=== PATIENT | female | born 1980 | race Two or more races ===

== ENCOUNTER → 2022-12-14 09:26 | Outpatient (BNVA) | payer OTHER, SELFPAY | PROVIDERS: Visit Provider Student in an Organized Health Care Education/Training Program | DX: M06.9 Rheumatoid arthritis, unspecified (principal); M79.7 Fibromyalgia; F17.210 Nicotine dependence, cigarettes, uncomplicated | CPT/HCPCS: 99202 ==

== ENCOUNTER 2022-12-21 14:00 | Outpatient (REF) | payer OTHER, SELFPAY ==
--- NOTE | ~2022-12-21 | XR_ITS ---
EXAMINATION: XR ANKLE, RIGHT XR ANKLE, LEFT XR FOOT, RIGHT XR FOOT, LEFT CLINICAL INFORMATION: Rheumatoid arthritis. COMPARISON: None. TECHNIQUE: AP, oblique, and lateral views of the right and left ankle and foot. FINDINGS: Right Ankle: No acute fracture or dislocation. No joint space narrowing or marginal osteophytes. The ankle mortise is maintained. No concerning lytic or blastic osseous lesion. No abnormal soft tissue calcification. No significant joint effusion. Left Ankle: No acute fracture or dislocation. No joint space narrowing or marginal osteophytes. The ankle mortise is maintained. No concerning lytic or blastic osseous lesion. No abnormal soft tissue calcification. No significant joint effusion. Right Foot: No acute fracture or dislocation. No joint space narrowing or marginal osteophytes. No concerning lytic or blastic osseous lesion. Tiny dorsal calcaneal spur. Left Foot: No acute fracture or dislocation. No joint space narrowing or marginal osteophytes. No concerning lytic or blastic osseous lesion. No abnormal soft tissue calcification. XR/XR ankle LT min 3V IMPRESSION: RIGHT ANKLE: Unremarkable examination. LEFT ANKLE: Unremarkable examination. RIGHT FOOT: Unremarkable examination. LEFT FOOT: Unremarkable examination.
--- NOTE | ~2022-12-21 | XR_ITS ---
EXAMINATION: XR ANKLE, RIGHT XR ANKLE, LEFT XR FOOT, RIGHT XR FOOT, LEFT CLINICAL INFORMATION: Rheumatoid arthritis. COMPARISON: None. TECHNIQUE: AP, oblique, and lateral views of the right and left ankle and foot. FINDINGS: Right Ankle: No acute fracture or dislocation. No joint space narrowing or marginal osteophytes. The ankle mortise is maintained. No concerning lytic or blastic osseous lesion. No abnormal soft tissue calcification. No significant joint effusion. Left Ankle: No acute fracture or dislocation. No joint space narrowing or marginal osteophytes. The ankle mortise is maintained. No concerning lytic or blastic osseous lesion. No abnormal soft tissue calcification. No significant joint effusion. Right Foot: No acute fracture or dislocation. No joint space narrowing or marginal osteophytes. No concerning lytic or blastic osseous lesion. Tiny dorsal calcaneal spur. Left Foot: No acute fracture or dislocation. No joint space narrowing or marginal osteophytes. No concerning lytic or blastic osseous lesion. No abnormal soft tissue calcification. XR/XR ankle RT min 3V IMPRESSION: RIGHT ANKLE: Unremarkable examination. LEFT ANKLE: Unremarkable examination. RIGHT FOOT: Unremarkable examination. LEFT FOOT: Unremarkable examination.
--- NOTE | ~2022-12-21 | XR_ITS ---
EXAMINATION: XR BOTH KNEES AP STANDING XR RIGHT KNEE, 3 VIEWS XR LEFT KNEE, 3 VIEWS CLINICAL INFORMATION: Rheumatoid arthritis. COMPARISON: None. TECHNIQUE: Standing AP view of both knees as well as tunnel, lateral, and sunrise views of the right and left knee. FINDINGS: Right Knee: No acute fracture or dislocation. No joint space narrowing or marginal osteophytes. No osseous erosion. No joint effusion. No abnormal soft tissue calcification. Left Knee: No acute fracture or dislocation. No joint space narrowing or marginal osteophytes. No osseous erosion. No joint effusion. No abnormal soft tissue calcification. XR/XR knee LT 3V IMPRESSION: RIGHT KNEE: Unremarkable examination. LEFT KNEE: Unremarkable examination.
--- NOTE | ~2022-12-21 | XR_ITS ---
EXAMINATION: XR ANKLE, RIGHT XR ANKLE, LEFT XR FOOT, RIGHT XR FOOT, LEFT CLINICAL INFORMATION: Rheumatoid arthritis. COMPARISON: None. TECHNIQUE: AP, oblique, and lateral views of the right and left ankle and foot. FINDINGS: Right Ankle: No acute fracture or dislocation. No joint space narrowing or marginal osteophytes. The ankle mortise is maintained. No concerning lytic or blastic osseous lesion. No abnormal soft tissue calcification. No significant joint effusion. Left Ankle: No acute fracture or dislocation. No joint space narrowing or marginal osteophytes. The ankle mortise is maintained. No concerning lytic or blastic osseous lesion. No abnormal soft tissue calcification. No significant joint effusion. Right Foot: No acute fracture or dislocation. No joint space narrowing or marginal osteophytes. No concerning lytic or blastic osseous lesion. Tiny dorsal calcaneal spur. Left Foot: No acute fracture or dislocation. No joint space narrowing or marginal osteophytes. No concerning lytic or blastic osseous lesion. No abnormal soft tissue calcification. XR/XR foot LT min 3V IMPRESSION: RIGHT ANKLE: Unremarkable examination. LEFT ANKLE: Unremarkable examination. RIGHT FOOT: Unremarkable examination. LEFT FOOT: Unremarkable examination.
--- NOTE | ~2022-12-21 | XR_ITS ---
EXAMINATION: XR BOTH KNEES AP STANDING XR RIGHT KNEE, 3 VIEWS XR LEFT KNEE, 3 VIEWS CLINICAL INFORMATION: Rheumatoid arthritis. COMPARISON: None. TECHNIQUE: Standing AP view of both knees as well as tunnel, lateral, and sunrise views of the right and left knee. FINDINGS: Right Knee: No acute fracture or dislocation. No joint space narrowing or marginal osteophytes. No osseous erosion. No joint effusion. No abnormal soft tissue calcification. Left Knee: No acute fracture or dislocation. No joint space narrowing or marginal osteophytes. No osseous erosion. No joint effusion. No abnormal soft tissue calcification. XR/XR knee standing BI IMPRESSION: RIGHT KNEE: Unremarkable examination. LEFT KNEE: Unremarkable examination.
--- NOTE | ~2022-12-21 | XR_ITS ---
EXAMINATION: XR ANKLE, RIGHT XR ANKLE, LEFT XR FOOT, RIGHT XR FOOT, LEFT CLINICAL INFORMATION: Rheumatoid arthritis. COMPARISON: None. TECHNIQUE: AP, oblique, and lateral views of the right and left ankle and foot. FINDINGS: Right Ankle: No acute fracture or dislocation. No joint space narrowing or marginal osteophytes. The ankle mortise is maintained. No concerning lytic or blastic osseous lesion. No abnormal soft tissue calcification. No significant joint effusion. Left Ankle: No acute fracture or dislocation. No joint space narrowing or marginal osteophytes. The ankle mortise is maintained. No concerning lytic or blastic osseous lesion. No abnormal soft tissue calcification. No significant joint effusion. Right Foot: No acute fracture or dislocation. No joint space narrowing or marginal osteophytes. No concerning lytic or blastic osseous lesion. Tiny dorsal calcaneal spur. Left Foot: No acute fracture or dislocation. No joint space narrowing or marginal osteophytes. No concerning lytic or blastic osseous lesion. No abnormal soft tissue calcification. XR/XR foot RT min 3V IMPRESSION: RIGHT ANKLE: Unremarkable examination. LEFT ANKLE: Unremarkable examination. RIGHT FOOT: Unremarkable examination. LEFT FOOT: Unremarkable examination.
--- NOTE | ~2022-12-21 | XR_ITS ---
EXAMINATION: XR WRIST, RIGHT XR WRIST, LEFT XR HAND, RIGHT XR HAND, LEFT CLINICAL INFORMATION: Rheumatoid arthritis. COMPARISON: None. TECHNIQUE: PA, lateral, oblique, and scaphoid views of the right and left hand and wrist. FINDINGS: Right Wrist: No fracture or dislocation. No joint space narrowing or marginal osteophytes. No osseous erosion. No abnormal soft tissue calcification. Left Wrist: No fracture or dislocation. No joint space narrowing or marginal osteophytes. No osseous erosion. No abnormal soft tissue calcification. Right Hand: No fracture or dislocation. Normal carpal alignment. No significant joint space narrowing or marginal osteophytes. No osseous erosion. No periarticular osteopenia. No abnormal soft tissue calcification. Left Hand: No fracture or dislocation. Normal carpal alignment. No significant joint space narrowing or marginal osteophytes. No osseous erosion. No periarticular osteopenia. No abnormal soft tissue calcification. XR/XR hand wrist RT IMPRESSION: RIGHT WRIST: Unremarkable examination. LEFT WRIST: Unremarkable examination. RIGHT HAND: Unremarkable examination. LEFT HAND: Unremarkable examination.
--- NOTE | ~2022-12-21 | XR_ITS ---
EXAMINATION: XR BOTH KNEES AP STANDING XR RIGHT KNEE, 3 VIEWS XR LEFT KNEE, 3 VIEWS CLINICAL INFORMATION: Rheumatoid arthritis. COMPARISON: None. TECHNIQUE: Standing AP view of both knees as well as tunnel, lateral, and sunrise views of the right and left knee. FINDINGS: Right Knee: No acute fracture or dislocation. No joint space narrowing or marginal osteophytes. No osseous erosion. No joint effusion. No abnormal soft tissue calcification. Left Knee: No acute fracture or dislocation. No joint space narrowing or marginal osteophytes. No osseous erosion. No joint effusion. No abnormal soft tissue calcification. XR/XR knee RT 3V IMPRESSION: RIGHT KNEE: Unremarkable examination. LEFT KNEE: Unremarkable examination.
--- NOTE | ~2022-12-21 | XR_ITS ---
EXAMINATION: XR WRIST, RIGHT XR WRIST, LEFT XR HAND, RIGHT XR HAND, LEFT CLINICAL INFORMATION: Rheumatoid arthritis. COMPARISON: None. TECHNIQUE: PA, lateral, oblique, and scaphoid views of the right and left hand and wrist. FINDINGS: Right Wrist: No fracture or dislocation. No joint space narrowing or marginal osteophytes. No osseous erosion. No abnormal soft tissue calcification. Left Wrist: No fracture or dislocation. No joint space narrowing or marginal osteophytes. No osseous erosion. No abnormal soft tissue calcification. Right Hand: No fracture or dislocation. Normal carpal alignment. No significant joint space narrowing or marginal osteophytes. No osseous erosion. No periarticular osteopenia. No abnormal soft tissue calcification. Left Hand: No fracture or dislocation. Normal carpal alignment. No significant joint space narrowing or marginal osteophytes. No osseous erosion. No periarticular osteopenia. No abnormal soft tissue calcification. XR/XR hand wrist LT IMPRESSION: RIGHT WRIST: Unremarkable examination. LEFT WRIST: Unremarkable examination. RIGHT HAND: Unremarkable examination. LEFT HAND: Unremarkable examination.
[2022-12-21 14:33] LABS: Basophils Absolute Auto 0.1 X10*3/uL (0.0-0.2); Basophils Percent Auto 0.3 % (0-2); Eosinophils Percent Auto 0.2 % (0-4); Hematocrit 42.2 % (37.0-47.0); Hemoglobin 14.3 g/dl (12.0-16.0); Imm Gran Abs Auto 0.13 X10*3/uL (0.00-0.03); Imm Gran Pct Auto 0.6 % (0.0-0.4); Lymphocytes Absolute Auto 5.9 X10*3/uL (1.2-4.9); Lymphocytes Percent Auto 26.6 % (20-40); MANUAL DIFF FLAG SCAN; Mean Corpuscular HGB Conc 33.9 g/dl (31.0-35.0); Mean Corpuscular Volume 91.5 fL (80.0-98.0); Mean Platelet Volume 10.1 fL (9.4-12.3); Monocytes Absolute Auto 0.8 X10*3/uL (0.1-1.2); Monocytes Percent Auto 3.7 % (2-11); Neutrophils Absolute Auto 15.2 x10*3/uL (2.0-8.3); Neutrophils Percent Auto 68.6 % (45-73); Platelet Count 409 X10*3/uL (160-400); Red Blood Count 4.61 X10*6/uL (4.20-5.50); Red Cell Distribution Width 13.2 % (11.0-16.0); SCAN SMEAR FLAG 1; White Blood Count 22.2 X10*3/uL (4.8-10.8)
[2022-12-21 15:04] LABS: SLIDE REVIEW VERIFIED
[2022-12-21 15:23] LABS: Alanine Aminotransferase 20 U/L (0-31); Albumin Level 4.3 g/dL (3.5-5.0); Alkaline Phosphatase 97 U/L (39-117); Aspartate Amino Transferase 11 U/L (5-31); Bilirubin Total 0.4 mg/dL (0.0-1.0); Blood Urea Nitrogen 12 mg/dL (9-16); C Reactive Protein 0.86 mg/dL (< or = 0.50); Calcium 9.3 mg/dL (8.4-10.2); Estimated Glomerular Filt Rate > 60; Glucose Random 120 mg/dL (60-115); Rheumatoid Factor 41.2 IU/mL (<15.0); Total Protein 7.3 g/dL (6.5-8.0); Uric Acid 5.7 mg/dL (2.4-5.7)
[2022-12-21 15:24] LABS: Appearance Urine Clear; Color Urine Yellow; Glucose Urine UA Negative (Negative); Leukocyte Esterase Urine Trace (Negative); Nitrite Urine Negative (Negative); PH 6.5 (5.0-9.0); Specific Gravity - Urine 1.015 (1.005-1.025); UMIC TRIGGER UA YES; Urine Blood Negative (Negative); Urine Ketones Negative (Negative); Urine Protein Negative (Neg-Trace)
[2022-12-21 15:26] LABS: Erythrocyte Sedimentation Rate 27 MM/HR (0-20)
[2022-12-21 15:31] LABS: Bacteria Urine None Seen (None Seen); Hyaline Casts Urine 0-2 /LPF (0-2); WBC Urine 0-5 /HPF (0-5)
[2022-12-21 15:41] LABS: Creatinine Urine 79.11 mg/dL; Total Protein Urine Random < 7 mg/dL (<12)
[2022-12-21 15:47] LABS: Anion Gap 15 (12-20); Carbon Dioxide 23 mmol/L (22-29); Chloride 104 mmol/L (96-108); Potassium 3.7 mmol/L (3.3-5.1); Sodium 138 mmol/L (135-145)
[2022-12-22 05:09] LABS: Estimated Average Glucose 108 mg/dL; Hemoglobin A1c % 5.4 %
[2022-12-22 20:54] LABS: Complement C3 169 mg/dL (83-193)
[2022-12-23 13:43] LABS: Anti-Centromere B Antibodies <1.0 NEG AI (<1.0 NEG)
[2022-12-23 13:48] LABS: Anti Nuclear Antibody Screen NEGATIVE (NEGATIVE)
[2022-12-23 13:59] LABS: Anti DNA DS Antibody <1 IU/mL; Antibody to SS-A Antigen <1.0 NEG AI (<1.0 NEG); Antibody to SS-B Antigen <1.0 NEG AI (<1.0 NEG); SM/Ribonucleoprotein Ab <1.0 NEG AI (<1.0 NEG); Scleroderma 70 Antibody <1.0 NEG AI (<1.0 NEG); Smith Protein <1.0 NEG AI (<1.0 NEG)
[2022-12-23 18:18] LABS: IgA 301 mg/dL (47-310); IgG 1167 mg/dL (600-1640); IgM 161 mg/dL (50-300)
[2022-12-23 21:38] LABS: TS Negative Control Passed; TS Panel A 0; TS Panel B 2; TS Positive Control Passed; TSpotTB Negative (Negative)
[2022-12-23 21:48] LABS: Prot Elec - Albumin 3.8 g/dL (3.8-4.8); Prot Elec - Alpha1 0.3 g/dL (0.2-0.3); Prot Elec - Beta 1 0.5 g/dL (0.4-0.6); Prot Elec - Beta 2 0.4 g/dL (0.2-0.5)
[2022-12-26 05:59] LABS: Beta-2 Glycoprotein IgA 2.3 U/mL (<20.0); Beta-2 Glycoprotein IgG <2.0 U/mL (<20.0); Beta-2 Glycoprotein IgM 4.8 U/mL (<20.0)
[2022-12-26 06:58] LABS: PTT (LAC) Screen 30 sec (<=40)
[2022-12-27 08:04] LABS: Cardiolipin IgG Ab <2.0 GPL-U/mL; Cardiolipin IgM Ab 4.7 MPL-U/mL
[2022-12-28 15:39] LABS: DNAds, Crithidia Antibody Negative (Negative)
== END 2022-12-21 14:01 | disposition home or self-care (01) ==
LOC: HO.LAB 14:00
PROVIDERS: Visit Provider Student in an Organized Health Care Education/Training Program
DX: Z13.1 Encounter for screening for diabetes mellitus (principal); Z11.7 Encounter for testing for latent tuberculosis infection; D68.61 Antiphospholipid syndrome; M25.542 Pain in joints of left hand; M32.9 Systemic lupus erythematosus, unspecified; M06.9 Rheumatoid arthritis, unspecified; M34.9 Systemic sclerosis, unspecified
CPT/HCPCS: 36415; 73110; 73130; 73562; 73564; 73565; 73610; 73630; 80053; 81001; 82784; 83036; 84156; 84165; 84550; 85025; 85597; 85613; 85652; 85730; 86038; 86039; 86140; 86146; 86147; 86160; 86225; 86235; 86255; 86334; 86431; 86481

== ENCOUNTER → 2023-03-31 07:54 | Outpatient (BNVA) | payer MEDICAID, SELFPAY | PROVIDERS: PCP Nurse Practitioner; Visit Provider Student in an Organized Health Care Education/Training Program | DX: M06.9 Rheumatoid arthritis, unspecified (principal); M79.7 Fibromyalgia; F17.210 Nicotine dependence, cigarettes, uncomplicated | CPT/HCPCS: 99212 ==

== ENCOUNTER 2023-06-21 13:02 | Outpatient (REF) | payer MEDICAID, SELFPAY ==
[2023-06-21 13:21] LABS: MANUAL DIFF FLAG NO
[2023-06-21 13:50] LABS: Basophils Absolute Auto 0.1 X10*3/uL (0.0-0.2); Basophils Percent Auto 0.4 % (0-2); Eosinophils Absolute Auto 0.2 X10*3/uL (0.0-0.4); Eosinophils Percent Auto 1.7 % (0-4); Hematocrit 40.5 % (37.0-47.0); Hemoglobin 13.5 g/dl (12.0-16.0); Imm Gran Abs Auto 0.06 X10*3/uL (0.00-0.03); Imm Gran Pct Auto 0.4 % (0.0-0.4); Lymphocytes Absolute Auto 3.8 X10*3/uL (1.2-4.9); Lymphocytes Percent Auto 26.6 % (20-40); Mean Corpuscular HGB Conc 33.3 g/dl (31.0-35.0); Mean Corpuscular Hemoglobin 32.2 pg (27.0-33.0); Mean Corpuscular Volume 96.7 fL (80.0-98.0); Mean Platelet Volume 10.2 fL (9.4-12.3); Monocytes Absolute Auto 0.5 X10*3/uL (0.1-1.2); Monocytes Percent Auto 3.3 % (2-11); Neutrophils Absolute Auto 9.6 x10*3/uL (2.0-8.3); Neutrophils Percent Auto 67.6 % (45-73); Platelet Count 354 X10*3/uL (160-400); Red Blood Count 4.19 X10*6/uL (4.20-5.50); Red Cell Distribution Width 14.3 % (11.0-16.0); White Blood Count 14.1 X10*3/uL (4.8-10.8)
[2023-06-21 14:37] LABS: Alanine Aminotransferase 20 U/L (0-31); Albumin Level 3.9 g/dL (3.5-5.0); Alkaline Phosphatase 82 U/L (39-117); Anion Gap 18 (12-20); Aspartate Amino Transferase 13 U/L (5-31); Bilirubin Total 0.5 mg/dL (0.0-1.0); Blood Urea Nitrogen 12 mg/dL (9-16); C Reactive Protein 2.12 mg/dL (< or = 0.50); Calcium 9.9 mg/dL (8.4-10.2); Carbon Dioxide 22 mmol/L (22-29); Chloride 102 mmol/L (96-108); Estimated Glomerular Filt Rate > 60; Glucose Random 129 mg/dL (60-115); Potassium 4.1 mmol/L (3.3-5.1); Sodium 138 mmol/L (135-145); Total Protein 7.3 g/dL (6.5-8.0)
[2023-06-21 14:43] LABS: Erythrocyte Sedimentation Rate 34 MM/HR (0-20)
== END 2023-06-21 13:03 | disposition home or self-care (01) ==
LOC: HO.LAB 13:02
PROVIDERS: PCP Nurse Practitioner; Visit Provider Student in an Organized Health Care Education/Training Program
DX: M06.9 Rheumatoid arthritis, unspecified (principal)
CPT/HCPCS: 36415; 80053; 85025; 85652; 86140

== ENCOUNTER 2023-06-30 13:43 | Outpatient (AMB) | payer MEDICAID, SELFPAY ==
[2023-06-30 13:46] VITALS: BP 118/92; PULSE 110; TEMP 36; O2SAT 98; BMI 36.7
--- NOTE | 2023-06-30 13:46 | A.OFFVIS_ITS ---
Intake Vital Signs 06/30/23 13:46 Height 5 ft 3 in Weight 207 lb 3.752 oz BMI 36.7 BP 118/92 H Blood Pressure Location Rt brachial Position Sitting Pulse 110 H Pulse Source Pulse Oximeter Temp 96.8 F Temp Source Skin Pulse Oximetry (%) 98 Oxygen Delivery Method Room Air Intake Visit Reasons: RA Intake Note: Here for RA and test results Client Technical Support Associate Required: Yes Client Technical Support Associate Language: Computer Programming Professor Name: Andrzej [id number] Information Interpreted: clinical only Accompanied by: Self / Same As Patient Allergies No Known Allergies Allergy (Unverified 06/30/23 13:48) Medication List - Last Reconciled 06/30/23 by Rashard Melchor MD albuterol sulfate 90 mcg/actuation (ProAir HFA) 2 puffs inhalation Q6H PRN bupropion HCl 150 mg PO QAM buspirone 5 mg PO BID clonazepam 1 mg PO diclofenac sodium 1% (Arthritis Pain (diclofenac)) 2 grams topical QID duloxetine 30 mg PO DAILY duloxetine 60 mg PO QAM folic acid 1 mg PO DAILY inhalational spacing device ([employer] [facility] spacer) As directed melatonin 10 mg PO BEDTIME PRN methotrexate sodium Take 8 tabs once weekly mometasone-formoterol 100-5 mcg/actuation (Dulera) 2 puffs inhalation BID montelukast (Singulair) 10 mg PO DAILY omeprazole 40 mg PO BID trazodone 50 mg PO BEDTIME triamcinolone acetonide 0.5% 1 appl topical DAILY ljhfyzy-tlky-aunnk-oreg-capryl 100 mg-150 mg- 50 mg-150 mg caps PO DAILY HPI HPI Comments History of Present Illness Details This is a 43-year-old female with seropositive RA who returns for follow-up. Has been taking methotrexate 20 mg weekly for the last 3 months. She states that she is less stiff overall. Currently she is able to get out of bed and do some work at home. Previously she was unable to do anything and she would stay in bed. She continues to have diffuse pain in her joints however including her hands, wrists, knees, ankles and feet Initial history: This is a 42-year-old female with a past medical history of anxiety, depression, GERD, fibromyalgia presents for evaluation of diffuse pain. Since 2014 patient has had diffuse pain. She was evaluated by rheumatologists in [place] and [place] and was told she has fibromyalgia. She was started on multiple medicines including gabapentin without significant relief. Patient continues to have all day pain affecting her hands, shoulders, neck, knees. She has morning stiffness of her hands lasting 30 minutes slightly improved with Advil. She denies history of Raynaud's. No history of DVT/PE. [facility], [facility] Medical History Anxiety and depression Asthma Bilateral breast cysts Dyspepsia GERD (gastroesophageal reflux disease) Hepatitis C Hx of headache Lumbar disc disease Obesity Ovarian cyst Tobacco abuse Surgical History Hx of cholecystectomy Hx of tubal ligation Family History Mother HIV (human immunodeficiency virus infection) AIDS Father Kidney disease Heart disease Diabetes Hypertension Sister Multiple sclerosis Social History Household Members: Spouse Alcohol intake: current Alcohol intake frequency: does not drink Patient Tobacco Use Status: Current everyday Tobacco user Cigarette Packs Per Day: 10 Review of Systems Const Reports fatigue and Reports weakness Eyes Reports no additional complaints ENT Reports neck pain Musc Reports back pain, Reports myalgias, Reports arthralgias, Reports neck pain and Reports stiffness Neuro Reports weakness Psych Reports abnormal sleep pattern, Reports anxiety and Reports depression Endo Reports fatigue Physical Exam Vital Signs: Last Vital Signs Temp 96.8 F 06/30/23 13:46 Pulse 110 H 06/30/23 13:46 BP 118/92 H 06/30/23 13:46 Pulse Ox 98 06/30/23 13:46 Oxygen Delivery Method Room Air 06/30/23 13:46 BMI result Body Mass Index 36.7 Const General: cooperative, healthy appearing and comfortable Nutritional Appearance: obese Orientation/consciousness: patient oriented x3 Limitations: no limitations HEENT Head: Yes normocephalic and Yes atraumatic Mouth: moist mucous membranes Resp Effort & Inspection: normal respiratory effort and able to speak in complete sentences Auscultation: clear to auscultation bilaterally Cardio Rate: regular rate Rhythm: regular rhythm Heart sounds: S1 normal heart sound present and S2 normal heart sound present Skin Other: Livido reticularis on upper extremities and knees Neuro General: patient oriented x3 Extrem Other: Bilateral wrist tenderness to palpation and pain with full flexion and extension , bilateral positive MCP squeeze test Bilateral tender PIPs, DIPs For range of motion of both shoulder Bilateral ankle tenderness without swelling or warmth Bilateral diffuse MTP tenderness and positive MTP squeeze test Diffuse fibromyalgia tender points Normal nailfold capillaroscopy Results Reviewed Results Reviewed: labs 08/2022 CCP>250 CCP in 2019 >250 ESR 14 HCV RNA -ve heaptitis panel B sAg -ve/hb A -ve B core -ve/c borderline Assessment & Plan Assessment & Plan (1) Rheumatoid arthritis: Comment: +RF+++CCP dx 04/11 MTX 04/11 partially effective Code(s): M06.9 - Rheumatoid arthritis, unspecified Qualifiers: Rheumatoid arthritis location: multiple sites Rheumatoid factor presence: unspecified presence Qualified Code(s): M06.9 - Rheumatoid arthritis, unspecified Plan: This is a 43-year-old female with seropositive RA returns for follow-up. On methotrexate 20 mg once weekly plus folic acid 1 mg daily. Continues to have multiple swollen and tender joints. Will need to add DMARDs. TNF inhibitor such as Enbrel and Humira will be relatively contraindicated has patient has a history with multiple sclerosis and TNF inhibitors have been associated with demyelinating disorders. Discussed risks and benefits of Actemra. Patient agreed to proceed. Will start prior authorization for Actemra Continue methotrexate 20 mg once weekly and folic acid daily Labs before next visit in 3 months Infectious screening hepatitis panel and T spot -ve 2022 (2) Tobacco dependence: Code(s): F17.200 - Nicotine dependence, unspecified, uncomplicated Plan: Patient continues to smoke 10 cigarettes a day. Discussed association of anti CCP antibody with smoking and the association of rheumatoid arthritis disease activity with smoking. Advised patient to attempt to quit (3) Fibromyalgia: Code(s): M79.7 - Fibromyalgia Plan I spent 29 minutes reviewing patient's chart, evaluating patient, ordering diagnostic workup, counseling patient and documenting in the chart Orders: Orders Hepatitis A,B,C Profile 3 Months Z11.59 - Encounter for screening for other viral diseases Hepatitis C Viral Load 3 Months Z11.59 - Encounter for screening for other viral diseases Coding Level of Care Code Est Pt Level 4 (54099) Diagnoses Rheumatoid arthritis M06.9 Rheumatoid arthritis location: multiple sites Rheumatoid factor presence: unspecified presence Tobacco dependence F17.200 Fibromyalgia M79.7
== END 2023-06-30 14:35 | disposition home or self-care (01) ==
PROVIDERS: PCP Nurse Practitioner; Visit Provider Student in an Organized Health Care Education/Training Program
DX: M06.9 Rheumatoid arthritis, unspecified (principal); F17.200 Nicotine dependence, unspecified, uncomplicated; M79.7 Fibromyalgia
CPT/HCPCS: 99214

== ENCOUNTER → 2023-06-30 13:43 | Outpatient (BNVA) | payer MEDICAID, SELFPAY | PROVIDERS: PCP Nurse Practitioner; Visit Provider Student in an Organized Health Care Education/Training Program | DX: M05.9 Rheumatoid arthritis with rheumatoid factor, unspecified (principal); M79.7 Fibromyalgia; F17.210 Nicotine dependence, cigarettes, uncomplicated; Z79.631 Long term (current) use of antimetabolite agent | CPT/HCPCS: 99212 ==

== ENCOUNTER 2023-09-25 12:40 | Outpatient (REF) | payer MEDICAID, SELFPAY ==
[2023-09-26 06:07] LABS: HBS Num1 0.55 mIU/mL (0-7.99); HBc Num1 0.08 S/CO (0.00-0.79); HBsAGNum1 0.36 S/CO (0.00-0.99); Hepatitis A Antibody IgM 0.19 Index (0-0.79); Hepatitis B Core Antibody Nonreactive (Nonreactive); Hepatitis B Surface Antigen Negative (Negative); ~HepC Num1 1.14 S/CO (0.00-0.79); ~Hepatitis A Antibody IgM Nonreactive (Nonreactive); ~Hepatitis B Surface Antibody NONREACTIVE (Nonreactive); ~Hepatitis C Antibody Reactive (Nonreactive)
[2023-09-28 18:44] LABS: HCV Log PCR <1.18 NOT DETECTED Log IU/mL (NOT DETECTED); HepC Viral Load <15 NOT DETECTED IU/mL (NOT DETECTED)
== END 2023-09-25 12:41 | disposition home or self-care (01) ==
LOC: HO.LAB 12:40
PROVIDERS: PCP Nurse Practitioner; Visit Provider Student in an Organized Health Care Education/Training Program
DX: Z11.59 Encounter for screening for other viral diseases (principal); Z72.89 Other problems related to lifestyle
CPT/HCPCS: 36415; 86704; 86706; 86709; 86803; 87340; 87522

== ENCOUNTER 2023-09-27 15:35 | Outpatient (AMB) | payer MEDICAID, SELFPAY ==
--- NOTE | 2023-09-27 15:38 | A.OFFVIS_ITS ---
Intake Vital Signs 09/27/23 15:39 Height 5 ft 3 in Weight 208 lb 1.862 oz BMI 36.9 BP 130/78 Blood Pressure Location Rt brachial Position Sitting Pulse 109 H Pulse Source Pulse Oximeter Temp 97.0 F Temp Source Skin Pulse Oximetry (%) 99 Intake Visit Reasons: RA Intake Note: Pt last seen 06/30/23, presents today for follow up and test results. MTX, folic acid, actemra. Blintze Roller Required: No Accompanied by: Self / Same As Patient Allergies No Known Allergies Allergy (Unverified 09/27/23 15:41) Medication List - Last Reconciled 09/27/23 by Rashard Melchor MD Actemra ACTPen (tocilizumab) 162 mg (0.9 mL) subcut Q2W NS albuterol sulfate 90 mcg/actuation (ProAir HFA) 2 puffs inhalation Q6H PRN bupropion HCl 150 mg PO QAM buspirone 5 mg PO BID clonazepam 1 mg PO diclofenac sodium 1% (Arthritis Pain (diclofenac)) 2 grams topical QID duloxetine 30 mg PO DAILY duloxetine 60 mg PO QAM folic acid 1 mg PO DAILY inhalational spacing device ([facility] spacer) As directed melatonin 10 mg PO BEDTIME PRN methotrexate sodium 20 mg (8 x 2.5 mg) PO QWEEK mometasone-formoterol 100-5 mcg/actuation (Dulera) 2 puffs inhalation BID montelukast (Singulair) 10 mg PO DAILY omeprazole 40 mg PO BID trazodone 50 mg PO BEDTIME triamcinolone acetonide 0.5% 1 appl topical DAILY uhonmrp-ypdc-vjuoo-oreg-capryl 100 mg-150 mg- 50 mg-150 mg caps PO DAILY HPI HPI Comments History of Present Illness Details This is a 43-year-old female with seropositive RA who returns for follow-up. She has started Actemra after last visit. She has been on it for 3 months. She is also on methotrexate 20 mg weekly and folic acid 1 mg daily. Patient cannot tell whether she is feeling better or worse on Actemra. She does not believe she has any side effects related to it. Today she is having pain in her left hip. Initial history: This is a 42-year-old female with a past medical history of anxiety, depression, GERD, fibromyalgia presents for evaluation of diffuse pain. Since 2014 patient has had diffuse pain. She was evaluated by rheumatologists in [place] and [place] and was told she has fibromyalgia. She was started on multiple medicines including gabapentin without significant relief. Patient continues to have all day pain affecting her hands, shoulders, neck, knees. She has morning stiffness of her hands lasting 30 minutes slightly improved with Advil. She denies history of Raynaud's. No history of DVT/PE. [facility] Medical History (Updated 09/27/23 @ 16:04 by Rashard Melchor MD) Hx of headache Dyspepsia Lumbar disc disease Obesity Ovarian cyst Hepatitis C Anxiety and depression Bilateral breast cysts GERD (gastroesophageal reflux disease) Tobacco abuse Asthma Surgical History Hx of cholecystectomy Hx of tubal ligation Family History Mother HIV (human immunodeficiency virus infection) AIDS Father Kidney disease Heart disease Diabetes Hypertension Sister Multiple sclerosis Social History Household Members: Spouse Alcohol intake: current Alcohol intake frequency: does not drink Patient Tobacco Use Status: Current everyday Tobacco user Cigarette Packs Per Day: 10 Review of Systems Musc Reports myalgias, Reports arthralgias and Reports stiffness Physical Exam Vital Signs: Last Vital Signs Temp 97.0 F 09/27/23 15:39 Pulse 109 H 09/27/23 15:39 BP 130/78 09/27/23 15:39 Pulse Ox 99 09/27/23 15:39 BMI result Body Mass Index 36.9 Const General: cooperative, healthy appearing and comfortable Nutritional Appearance: obese Orientation/consciousness: patient oriented x3 Limitations: no limitations HEENT Head: Yes normocephalic and Yes atraumatic Mouth: moist mucous membranes Resp Effort & Inspection: normal respiratory effort and able to speak in complete sentences Skin Other: Livido reticularis on upper extremities and knees Neuro General: patient oriented x3 Extrem Other: Bilateral wrist tenderness to palpation and pain with full flexion and extension Negative MCP squeeze test bilaterally Bilateral 4th PIP tenderness without swelling For range of motion of both shoulder Bilateral Diffuse fibromyalgia tender points Normal nailfold capillaroscopy Results Reviewed Results Reviewed: labs 08/2022 CCP>250 CCP in 2019 >250 ESR 14 HCV RNA -ve heaptitis panel B sAg -ve/hb A -ve B core -ve/c borderline Assessment & Plan Assessment & Plan (1) Rheumatoid arthritis: Comment: +RF+++CCP dx 04/11 MTX 04/11 partially effective actemra added 07/12 effective Code(s): M06.9 - Rheumatoid arthritis, unspecified Qualifiers: Rheumatoid arthritis location: multiple sites Rheumatoid factor presence: unspecified presence Qualified Code(s): M06.9 - Rheumatoid arthritis, unspecified Plan: This is a 43-year-old female with seropositive RA returns for follow-up. On methotrexate 20 mg once weekly folic acid 1 mg daily and Actemra 162 mg every other week. Her RA is well controlled on this current regimen. 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 Advised patient to get the COVID booster. Hold methotrexate for 2 doses after vaccination Plan I spent 29 minutes reviewing patient's chart, evaluating patient, ordering diagnostic workup, counseling patient and documenting in the chart Orders: Orders Comprehensive Met. Panel 3 Months M06.9 - Rheumatoid arthritis, unspecified Comprehensive Met. Panel Today M06.9 - Rheumatoid arthritis, unspecified Erythrocyte Sedimentation Rate Today M06.9 - Rheumatoid arthritis, unspecified Complete Blood Count Auto Diff 3 Months M06.9 - Rheumatoid arthritis, unspecified C Reactive Protein 3 Months M06.9 - Rheumatoid arthritis, unspecified Erythrocyte Sedimentation Rate 3 Months M06.9 - Rheumatoid arthritis, unspecified Complete Blood Count Auto Diff Today M06.9 - Rheumatoid arthritis, unspecified C Reactive Protein Today M06.9 - Rheumatoid arthritis, unspecified Coding Level of Care Code Est Pt Level 4 (94209) Diagnoses Rheumatoid arthritis involving multiple sites, unspecified whether rheumatoid factor present M06.9 Rheumatoid arthritis location: multiple sites Rheumatoid factor presence: unspecified presence retirement methotrexate user Z79.631 Immunization counseling Z71.85
[2023-09-27 15:39] VITALS: BP 130/78; PULSE 109; TEMP 36.1; O2SAT 99; BMI 36.9
== END 2023-09-27 15:58 | disposition home or self-care (01) ==
PROVIDERS: PCP Nurse Practitioner; Visit Provider Student in an Organized Health Care Education/Training Program
DX: M06.9 Rheumatoid arthritis, unspecified (principal); Z79.631 Long term (current) use of antimetabolite agent; Z71.85 Encounter for immunization safety counseling
CPT/HCPCS: 99214

== ENCOUNTER → 2023-09-27 15:35 | Outpatient (BNVA) | payer MEDICAID, SELFPAY | PROVIDERS: PCP Nurse Practitioner; Visit Provider Student in an Organized Health Care Education/Training Program | DX: M06.9 Rheumatoid arthritis, unspecified (principal); Z79.631 Long term (current) use of antimetabolite agent; Z71.85 Encounter for immunization safety counseling | CPT/HCPCS: 99212 ==

== ENCOUNTER 2023-10-09 13:00 | Outpatient (REF) | payer MEDICAID, SELFPAY ==
[2023-10-09 13:13] LABS: MANUAL DIFF FLAG NO
[2023-10-09 13:37] LABS: Basophils Absolute Auto 0.1 X10*3/uL (0.0-0.2); Basophils Percent Auto 0.8 % (0-2); Eosinophils Absolute Auto 0.2 X10*3/uL (0.0-0.4); Eosinophils Percent Auto 1.5 % (0-4); Hematocrit 41.5 % (37.0-47.0); Hemoglobin 13.7 g/dl (12.0-16.0); Imm Gran Abs Auto 0.13 X10*3/uL (0.00-0.03); Imm Gran Pct Auto 0.9 % (0.0-0.4); Lymphocytes Absolute Auto 3.8 X10*3/uL (1.2-4.9); Mean Corpuscular Hemoglobin 32.8 pg (27.0-33.0); Mean Corpuscular Volume 99.3 fL (80.0-98.0); Mean Platelet Volume 10.4 fL (9.4-12.3); Monocytes Absolute Auto 0.7 X10*3/uL (0.1-1.2); Monocytes Percent Auto 5.1 % (2-11); Neutrophils Absolute Auto 9.2 x10*3/uL (2.0-8.3); Neutrophils Percent Auto 64.7 % (45-73); Platelet Count 307 X10*3/uL (160-400); Red Blood Count 4.18 X10*6/uL (4.20-5.50); Red Cell Distribution Width 14.3 % (11.0-16.0); White Blood Count 14.2 X10*3/uL (4.8-10.8)
[2023-10-09 14:18] LABS: Erythrocyte Sedimentation Rate 28 MM/HR (0-20)
[2023-10-09 14:41] LABS: Alanine Aminotransferase 28 U/L (0-31); Albumin Level 4.2 g/dL (3.5-5.0); Alkaline Phosphatase 68 U/L (39-117); Anion Gap 12 (12-20); Aspartate Amino Transferase 19 U/L (5-31); Bilirubin Total 0.5 mg/dL (0.0-1.0); Blood Urea Nitrogen 10 mg/dL (9-16); C Reactive Protein 1.76 mg/dL (< or = 0.50); Carbon Dioxide 28 mmol/L (22-29); Chloride 104 mmol/L (96-108); Estimated Glomerular Filt Rate > 60; Glucose Random 137 mg/dL (60-115); Potassium 4.1 mmol/L (3.3-5.1); Sodium 140 mmol/L (135-145); Total Protein 7.5 g/dL (6.5-8.0)
== END 2023-10-09 13:01 | disposition home or self-care (01) ==
LOC: HO.LAB 13:00
PROVIDERS: PCP Nurse Practitioner; Visit Provider Student in an Organized Health Care Education/Training Program
DX: M06.9 Rheumatoid arthritis, unspecified (principal)
CPT/HCPCS: 36415; 80053; 85025; 85652; 86140

== ENCOUNTER 2024-01-17 15:43 | Outpatient (REF) | payer MEDICAID, SELFPAY | END 2024-01-17 15:44 | disposition home or self-care (01) | LOC: HO.LAB 15:43 | PROVIDERS: Visit Provider Student in an Organized Health Care Education/Training Program | DX: Z13.89 Encounter for screening for other disorder (principal) ==

== ENCOUNTER 2024-01-22 13:47 | Outpatient (REF) | payer MEDICAID, SELFPAY ==
[2024-01-22 14:09] LABS: MANUAL DIFF FLAG NO
[2024-01-22 14:55] LABS: Basophils Absolute Auto 0.1 X10*3/uL (0.0-0.2); Basophils Percent Auto 0.6 % (0-2); Eosinophils Absolute Auto 0.3 X10*3/uL (0.0-0.4); Eosinophils Percent Auto 2.6 % (0-4); Hematocrit 40.2 % (37.0-47.0); Hemoglobin 13.4 g/dl (12.0-16.0); Imm Gran Abs Auto 0.07 X10*3/uL (0.00-0.03); Imm Gran Pct Auto 0.6 % (0.0-0.4); Lymphocytes Absolute Auto 3.4 X10*3/uL (1.2-4.9); Mean Corpuscular HGB Conc 33.3 g/dl (31.0-35.0); Mean Corpuscular Hemoglobin 32.2 pg (27.0-33.0); Mean Corpuscular Volume 96.6 fL (80.0-98.0); Mean Platelet Volume 10.5 fL (9.4-12.3); Monocytes Absolute Auto 0.5 X10*3/uL (0.1-1.2); Monocytes Percent Auto 3.9 % (2-11); Neutrophils Absolute Auto 8.2 x10*3/uL (2.0-8.3); Neutrophils Percent Auto 65.3 % (45-73); Platelet Count 313 X10*3/uL (160-400); Red Blood Count 4.16 X10*6/uL (4.20-5.50); Red Cell Distribution Width 13.7 % (11.0-16.0); White Blood Count 12.6 X10*3/uL (4.8-10.8)
[2024-01-22 15:46] LABS: Erythrocyte Sedimentation Rate 6 MM/HR (0-20)
[2024-01-22 15:50] LABS: Alanine Aminotransferase 56 U/L (0-31); Albumin Level 4.2 g/dL (3.5-5.0); Alkaline Phosphatase 66 U/L (39-117); Anion Gap 12 (12-20); Aspartate Amino Transferase 31 U/L (5-31); Bilirubin Total 0.4 mg/dL (0.0-1.0); Blood Urea Nitrogen 12 mg/dL (9-16); C Reactive Protein < 0.10 mg/dL (< or = 0.50); Calcium 9.5 mg/dL (8.4-10.2); Carbon Dioxide 27 mmol/L (22-29); Chloride 107 mmol/L (96-108); Estimated Glomerular Filt Rate > 60; Glucose Random 85 mg/dL (60-115); Potassium 4.6 mmol/L (3.3-5.1); Sodium 141 mmol/L (135-145); Total Protein 7.2 g/dL (6.5-8.0)
== END 2024-01-22 13:48 | disposition home or self-care (01) ==
LOC: HO.LAB 13:47
PROVIDERS: PCP Nurse Practitioner; Visit Provider Student in an Organized Health Care Education/Training Program
DX: M06.9 Rheumatoid arthritis, unspecified (principal)
CPT/HCPCS: 36415; 80053; 85025; 85652; 86140

== ENCOUNTER 2024-01-23 15:14 | Outpatient (AMB) | payer MEDICAID, SELFPAY ==
--- NOTE | 2024-01-23 15:18 | MHC.OFFVIS ---
Intake Vital Signs 01/23/24 15:19 Height 5 ft 3 in Weight 209 lb 14.081 oz BMI 37.2 BP 118/74 Blood Pressure Location Rt brachial Position Sitting Intake Visit Reasons: RA Intake Note: Patient last seen 09/27/23 presents today for follow up and test results. Cant differentiate between arthritis or fm. Has the following symptoms: Vertigo N/V Diarrhea Constipation blurred vision swelling in neck, has rocks in tonsils back pain very uncomfortable using the bathroom. Stressed fighting to get SSI, has no income. Foundry Technician Required: No Accompanied by: Self / Same As Patient Allergies No Known Allergies Allergy (Unverified 01/23/24 15:27) Medication List - Last Reconciled 01/23/24 by Rashard Melchor MD Actemra ACTPen (tocilizumab) 162 mg (0.9 mL) subcut Q2W NS albuterol sulfate 90 mcg/actuation (ProAir HFA) 2 puffs inhalation Q6H PRN bupropion HCl 150 mg PO QAM buspirone 5 mg PO BID clonazepam 1 mg PO diclofenac sodium 1% (Arthritis Pain (diclofenac)) 2 grams topical QID duloxetine 30 mg PO DAILY duloxetine 60 mg PO QAM folic acid 1 mg PO DAILY inhalational spacing device ([facility] spacer) As directed melatonin 10 mg PO BEDTIME PRN methotrexate sodium 20 mg (8 x 2.5 mg) PO QWEEK mometasone-formoterol 100-5 mcg/actuation (Dulera) 2 puffs inhalation BID montelukast (Singulair) 10 mg PO DAILY omeprazole 40 mg PO BID trazodone 50 mg PO BEDTIME triamcinolone acetonide 0.5% 1 appl topical DAILY iiwudked-rzaj-padvt-oreg-capry 100 mg-150 mg- 50 mg-150 mg caps PO DAILY HPI HPI Comments History of Present Illness Details This is a 43-year-old female with seropositive RA who returns for follow-up. She is on Actemra every other week and methotrexate 20 mg weekly. She is tearful. Patient states that she continues to have diffuse pain everywhere. She can not tell whether this is from arthritis or fibromyalgia. She follows up with her psychiatrist and psychotherapist regularly. She states that her SSI was canceled as she went to [place]. She denies any recent illnesses denies any recent alcohol or substance use recently Patient cannot tell whether she is feeling better or worse on Actemra. She does not believe she has any side effects related to it. Today she is having pain in her left hip. Initial history: This is a 42-year-old female with a past medical history of anxiety, depression, GERD, fibromyalgia presents for evaluation of diffuse pain. Since 2014 patient has had diffuse pain. She was evaluated by rheumatologists in [place] and [place] and was told she has fibromyalgia. She was started on multiple medicines including gabapentin without significant relief. Patient continues to have all day pain affecting her hands, shoulders, neck, knees. She has morning stiffness of her hands lasting 30 minutes slightly improved with Advil. She denies history of Raynaud's. No history of DVT/PE. [facility] Medical History Hx of headache Dyspepsia Lumbar disc disease Obesity Ovarian cyst Hepatitis C Anxiety and depression Bilateral breast cysts GERD (gastroesophageal reflux disease) Tobacco abuse Asthma Surgical History Hx of cholecystectomy Hx of tubal ligation Family History Mother HIV (human immunodeficiency virus infection) AIDS Father Kidney disease Heart disease Diabetes Hypertension Sister Multiple sclerosis Social History Household Members: Spouse Alcohol intake: current Alcohol intake frequency: does not drink Patient Tobacco Use Status: Current everyday Tobacco user Cigarette Packs Per Day: 10 Review of Systems Const Reports weakness ENT Reports vertigo and Reports neck pain GI Reports constipation, Reports diarrhea and Reports nausea Musc Reports back pain, Reports myalgias, Reports arthralgias, Reports neck pain and Reports stiffness Neuro Reports vertigo and Reports weakness Physical Exam Vital Signs: Last Vital Signs BP 118/74 01/23/24 15:19 BMI result Body Mass Index 37.2 Const General: cooperative, healthy appearing, comfortable and anxious Nutritional Appearance: obese Orientation/consciousness: patient oriented x3 Limitations: no limitations HEENT Head: Yes normocephalic and Yes atraumatic Mouth: moist mucous membranes Resp Effort & Inspection: normal respiratory effort and able to speak in complete sentences Skin Other: Livido reticularis on upper extremities and knees Neuro General: patient oriented x3 Extrem Other: No active synovitis today Diffuse fibromyalgia tender points Normal nailfold capillaroscopy Results Reviewed Results Reviewed: labs 08/2022 CCP>250 CCP in 2019 >250 ESR 14 HCV RNA -ve heaptitis panel B sAg -ve/hb A -ve B core -ve/c borderline Assessment & Plan Assessment & Plan (1) Rheumatoid arthritis: Comment: +RF+++CCP dx 04/11 MTX 04/11 partially effective actemra added 07/12 effective Code(s): M06.9 - Rheumatoid arthritis, unspecified Qualifiers: Rheumatoid arthritis location: multiple sites Rheumatoid factor presence: unspecified presence Qualified Code(s): M06.9 - Rheumatoid arthritis, unspecified Plan: This is a 43-year-old female with seropositive RA returns for follow-up. On methotrexate 20 mg once weekly folic acid 1 mg daily and Actemra 162 mg every other week. Her RA is well controlled on this current regimen. 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 Methotrexate dose reduced as mentioned above Plan I spent 29 minutes reviewing patient's chart, evaluating patient, ordering diagnostic workup, counseling patient and documenting in the chart Orders: Orders Complete Blood Count Auto Diff 3 Months Z79.631 - senior living (current) use of antimetabolite agent Comprehensive Met. 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
[2024-01-23 15:19] VITALS: BP 118/74; BMI 37.2
== END 2024-01-23 15:47 | disposition home or self-care (01) ==
PROVIDERS: PCP Nurse Practitioner; Referring Provider Nurse Practitioner; Visit Provider Student in an Organized Health Care Education/Training Program
DX: M06.9 Rheumatoid arthritis, unspecified (principal); Z79.631 Long term (current) use of antimetabolite agent
CPT/HCPCS: 99214

== ENCOUNTER → 2024-01-23 15:14 | Outpatient (BNVA) | payer MEDICAID, SELFPAY | PROVIDERS: PCP Nurse Practitioner; Visit Provider Student in an Organized Health Care Education/Training Program | DX: M06.9 Rheumatoid arthritis, unspecified (principal); Z79.631 Long term (current) use of antimetabolite agent | CPT/HCPCS: 99212 ==